=== PATIENT | female | born 1960 | race Caucasian/White ===

== ENCOUNTER 2022-07-06 08:00 | Outpatient (CLI) | payer MEDICARE, SELFPAY ==
--- NOTE | 2022-07-06 | ECG_ITS ---
[facility] [place] Date: 2022-07-06 Pat Name: Genna Jackson Department: Room: Gender: Female Fleet Assistant: : 1960 Requested By: Hansa Avelar Order Number: [id number] Oleksandr MD: Ranjith Gandara M.D. Interpretive Statements NAME OF STUDY: LEXISCAN SESTAMIBI STRESS TEST INDICATION: [HTN, hx of angina, ] Procedure: At the baseline, the blood pressure was 157/87 mmHg with a heart rate of 49 bpm. The electrocardiogram showed sinus bradycardia, normal axis with normal ST and T's. The Lexiscan was infused over a period of 20 seconds. A total of 0.4 mg of Lexiscan was infused. The stress phase was continued for a total of 5 minutes. Heart rate was at the end of stress phase was 79 bpm and a blood pressure of 157/87 mmHg. The EKG at the peak infusion revealed normal sinus rhythm with no significant ST-T wave changes. Sestamibi was injected 20 seconds after the Lexiscan infusion. Blood pressure at the end of recovery phase was 144/76 mmHg with a heart rate of 63 bpm. Conclusion: 1. Normal EKG response to Lexiscan infusion 2. No Lexiscan induced chest pain or cardiac arrhythmia. 3. Normal blood pressure and heart rate response. 4. Sestamibi/sestamibi perfusion scan pending; see separate report. Electronically Signed On 07-23-2022 11:43:45 CDT by Ranjith Gandara M.D. [email or web address]
[2022-07-06 09:10] VITALS: BMI 36.1
--- NOTE | 2022-07-06 09:19 | NMCV_ITS ---
NM rory perf SPECT r/s* [id number] Genna Jackson Age: 62 Gender: F : 1960 Exam Date: 07/06/2022 09:16 Ordering Phys: Hansa Avelar Technologist: ALEXANDRIA Tolentino Exam Location: [facility] Indications: HYPERTENSION STRESS TEST Please see separate stress test report in [facility] for full findings IMAGE PROTOCOL Rest/Stress 1 Lexiscan Day Radiopharmaceutical Dose (mCi) Administration Site Administered by Rest: Tc-99m 11.0 IV Akil Tran, ELECTRONIC ORGAN TECHNICIAN Sestamibi Stress:Tc-99m 32.9 IV Akil Tran, ELECTRONIC ORGAN TECHNICIAN Sestamibi Rest: 06-Jul-2022 60 Discovery 630 Stress: 06-Jul-2022 30 Discovery 630 0.4mg Lexiscan. Images obtained in supine and prone position. SPECT RESULTS Technical Quality: Excellent Raw Data Analysis: Normal Image Corrections: No attenuation or motion correction applied Summed Stress Score: 4 Summed Rest Score: 4 Summed Difference Score: 1 PERFUSION FINDINGS There is a small in size, partially reversible perfusion defect noted in the apical and apical inferior underwood. This is consistent with small sized prior infarct with small area of tasha-infarct ischemia in these territories. FUNCTIONAL RESULTS (calculated via Gated SPECT) Stress Image LV EF (%): 73 Stress EDV (mL):133 TID: 1.04 Stress ESV (mL):36 FUNCTIONAL FINDINGS: There is normal left ventricular systolic function. IMPRESSIONS 1. Small sized area of prior infarct noted in the apical and apical inferior underwood with small area of tasha-infarct ischemia seen 2. LV systolic function is normal Ranjith Gandara MD (Electronically Signed) Final Date: 09 July 2022 12:22 S
[2022-07-06] MEDS: regadenoson 0.4 Mg/5 ml Syringe IVP (10:29)
[2022-07-06 10:49] VITALS: BP 144/76; PULSE 62
[2022-07-06] MEDS: ondansetron 2 mg/ML SDV 2 mL 4 MG IVP (10:49)
== END 2022-07-06 08:01 | disposition home or self-care (01) ==
PROVIDERS: PCP Family Medicine; Visit Provider Nurse Practitioner Family
DX: I10 Essential (primary) hypertension (principal); E78.5 Hyperlipidemia, unspecified; E66.9 Obesity, unspecified; Z86.79 Personal history of other diseases of the circulatory system
CPT/HCPCS: 36415; 78452; 93017; 96374; 96375; A9500; J2405; J2785

== ENCOUNTER → 2022-07-11 08:09 | Outpatient (BNVA) | payer MEDICARE, SELFPAY | PROVIDERS: PCP Family Medicine; Referring Provider Nurse Practitioner Family; Visit Provider Internal Medicine Rheumatology | DX: R21 Rash and other nonspecific skin eruption (principal); Z79.899 Other long term (current) drug therapy; M19.90 Unspecified osteoarthritis, unspecified site; M17.0 Bilateral primary osteoarthritis of knee; Z11.1 Encounter for screening for respiratory tuberculosis | CPT/HCPCS: 99204 ==

== ENCOUNTER 2022-07-12 13:19 | Outpatient (CLI) | payer MEDICARE, SELFPAY ==
--- NOTE | 2022-07-12 13:52 | XR_ITS ---
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 No sign of loosening or fracture. No joint effusion. Normal soft tissues. XR/XR knee RT 3V* [id number] IMPRESSION: 1. Intact right total knee replacement.
--- NOTE | 2022-07-12 13:52 | XR_ITS ---
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 Mild degenerative narrowing of the IP and MP joints. Several periar ticular subcortical cysts are noted. Normal soft tissues. XR/XR hand RT min 3V* [id number] IMPRESSION: 1. Mild degenerative changes. Several periarticular subcortical cysts are noted in the digits. 2. No fracture or other significant finding.
--- NOTE | 2022-07-12 13:52 | XR_ITS ---
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 Minimal degenerative thinning of the medial joint compartment. No joint e ffusion noted. Soft tissue calcification seen along the anterior upper tibia. XR/XR knee LT 3V* [id number] IMPRESSION: 1. Mild degenerative narrowing of the medial joint compartment. 2. No fracture or joint effusion.
--- NOTE | 2022-07-12 13:52 | XR_ITS ---
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 Mild degenerative changes in the IP and MP joints. Several of subco rtical cysts are identified in the phalanges and distal second metacarpal. No soft tissue foreign bod ies are seen. XR/XR hand LT min 3V* [id number] IMPRESSION: 1. Degenerative changes of the IP and MP joints with subcortical cyst formation . 2. No fracture or dislocation.
[2022-07-12 15:01] LABS: 25 Hydroxy Vitamin D 37 ng/mL (30-100)
[2022-07-14 14:45] LABS: Quantiferon Mitogen >10.00 IU/mL; Quantiferon Nil 0.02 IU/mL; Quantiferon TB Gold NEGATIVE (NEGATIVE)
[2022-07-16 13:11] LABS: Cyclic Citrullinated Peptide <16 UNITS
[2022-07-17 08:05] LABS: SS A Ro Sjogrens Antibody <1.0 NEG AI (<1.0 NEG); SS-B/LA IGG <1.0 NEG AI (<1.0 NEG)
== END 2022-07-12 13:20 | disposition home or self-care (01) ==
LOC: LAB 13:21
PROVIDERS: PCP Family Medicine; Visit Provider Internal Medicine Rheumatology
DX: M19.90 Unspecified osteoarthritis, unspecified site (principal); Z79.899 Other long term (current) drug therapy; Z11.59 Encounter for screening for other viral diseases
CPT/HCPCS: 36415; 73130; 73562; 82306; 86200; 86235; 86480

== ENCOUNTER 2023-08-20 14:20 | Outpatient (CLI) | payer OTHER, SELFPAY ==
[2023-08-20 15:07] LABS: Basophils # 0.1 10^3/uL (0.0-0.1); Basophils % 1.1 %; Eosinophils # 0.1 10^3/uL (0.0-0.8); Eosinophils % 1.2 %; Hematocrit 38.6 % (36-47); Lymphocytes # 2.3 10^3/uL (0.8-4.8); Lymphocytes % 40.4 %; Mean Corpuscular HGB Conc 33.4 g/dL (30-55); Mean Corpuscular Hemoglobin 31.6 pg (27-33); Mean Corpuscular Volume 94.6 fl (85-98); Mean Platelet Volume 10.5 fL (7.4-10.4); Monocytes # 0.4 10^3/uL (0.2-0.9); Monocytes % 6.2 %; Neutrophils % 50.9 %; Nucleated Red Blood Cells % 0 %; Platelet Count 284 10^3/cmm (157-399); Red Blood Count 4.08 10^6/uL (3.85-5.65); Red Cell Distribution Width 13.7 % (12.1-15.1); White Blood Count 5.69 10^3/uL (3.29-11.43)
[2023-08-20 15:29] LABS: Alanine Aminotransferase 15 U/L (0-33); Albumin Level 4.2 g/dL (3.5-5.2); Alkaline Phosphatase 121 U/L (35-105); Aspartate Amino Transferase 19 U/L (0-32); Globulin 2.8 g/dL (1.3-4.6); Glomerular Filtration Rate 72.4 mL/min (90-130); Total Bilirubin 0.4 mg/dL (0.15-1.2)
== END 2023-08-20 14:21 | disposition home or self-care (01) ==
LOC: LAB 14:23
PROVIDERS: PCP Family Medicine; Visit Provider Internal Medicine Rheumatology
DX: Z79.899 Other long term (current) drug therapy (principal); M06.041 Rheumatoid arthritis without rheumatoid factor, right hand; M06.042 Rheumatoid arthritis without rheumatoid factor, left hand
CPT/HCPCS: 36415; 80076; 82565; 85025; 86140

== ENCOUNTER → 2023-11-19 07:57 | Outpatient (BNVA) | payer OTHER, SELFPAY | PROVIDERS: PCP Family Medicine; Visit Provider Physician Assistant | DX: M19.011 Primary osteoarthritis, right shoulder (principal); M75.41 Impingement syndrome of right shoulder | CPT/HCPCS: 73030 ==

== ENCOUNTER 2023-11-19 08:50 | Outpatient (CLI) | payer OTHER, SELFPAY ==
[2023-11-19 09:41] LABS: Basophils # 0.1 10^3/uL (0.0-0.1); Basophils % 1.6 %; Eosinophils # 0.2 10^3/uL (0.0-0.8); Hematocrit 38.8 % (36-47); Lymphocytes # 2.1 10^3/uL (0.8-4.8); Lymphocytes % 36.9 %; Mean Corpuscular HGB Conc 33.5 g/dL (30-55); Mean Corpuscular Hemoglobin 31.3 pg (27-33); Mean Corpuscular Volume 93.5 fl (85-98); Mean Platelet Volume 11.3 fL (7.4-10.4); Monocytes # 0.7 10^3/uL (0.2-0.9); Monocytes % 11.5 %; Neutrophils % 46.8 %; Nucleated Red Blood Cells % 0 %; Platelet Count 221 10^3/cmm (157-399); Red Blood Count 4.15 10^6/uL (3.85-5.65); Red Cell Distribution Width 13.2 % (12.1-15.1); White Blood Count 5.75 10^3/uL (3.29-11.43)
[2023-11-19 09:51] LABS: Erythrocyte Sedimentation Rate 7 mm/hr (0-15)
[2023-11-19 10:04] LABS: Alanine Aminotransferase 14 U/L (0-33); Albumin Level 4.1 g/dL (3.5-5.2); Alkaline Phosphatase 123 U/L (35-105); Aspartate Amino Transferase 19 U/L (0-32); Globulin 2.5 g/dL (1.3-4.6); Glomerular Filtration Rate 84.5 mL/min (90-130); Total Bilirubin 0.2 mg/dL (0.15-1.2); Total Protein 6.6 g/dL (6.6-8.7)
== END 2023-11-19 08:51 | disposition home or self-care (01) ==
LOC: LAB 08:54
PROVIDERS: PCP Family Medicine; Visit Provider Internal Medicine Rheumatology
DX: Z79.899 Other long term (current) drug therapy (principal); M06.041 Rheumatoid arthritis without rheumatoid factor, right hand; M06.042 Rheumatoid arthritis without rheumatoid factor, left hand
CPT/HCPCS: 36415; 80076; 82565; 85025; 85651; 86140

== ENCOUNTER 2024-02-26 13:47 | Outpatient (CLI) | payer OTHER, SELFPAY ==
[2024-02-26 14:05] LABS: Basophils # 0.1 10^3/uL (0.0-0.1); Basophils % 0.7 %; Eosinophils # 0.1 10^3/uL (0.0-0.8); Eosinophils % 1.8 %; Lymphocytes # 2.1 10^3/uL (0.8-4.8); Lymphocytes % 31.6 %; Mean Corpuscular HGB Conc 33.9 g/dL (30-55); Mean Corpuscular Hemoglobin 30.6 pg (27-33); Mean Corpuscular Volume 90.2 fl (85-98); Mean Platelet Volume 10.6 fL (7.4-10.4); Monocytes # 0.7 10^3/uL (0.2-0.9); Monocytes % 9.7 %; Neutrophils # 3.73 10^3/uL (1.8-7.7); Neutrophils % 55.6 %; Nucleated Red Blood Cells % 0 %; Platelet Count 179 10^3/cmm (157-399); Red Blood Count 3.99 10^6/uL (3.85-5.65); Red Cell Distribution Width 13.2 % (12.1-15.1); White Blood Count 6.71 10^3/uL (3.29-11.43)
[2024-02-26 14:17] LABS: Erythrocyte Sedimentation Rate 11 mm/hr (0-15)
[2024-02-26 14:25] LABS: Alanine Aminotransferase 18 U/L (0-33); Alkaline Phosphatase 103 U/L (35-105); Aspartate Amino Transferase 19 U/L (0-32); C Reactive Protein 18.7 mg/L (0.0-4.9); Globulin 2.7 g/dL (1.3-4.6); Glomerular Filtration Rate 72.4 mL/min (90-130); Total Bilirubin 0.4 mg/dL (0.15-1.2); Total Protein 6.7 g/dL (6.6-8.7)
== END 2024-02-26 13:48 | disposition home or self-care (01) ==
PROVIDERS: PCP Family Medicine; Visit Provider Internal Medicine Rheumatology
DX: M06.041 Rheumatoid arthritis without rheumatoid factor, right hand (principal); M06.042 Rheumatoid arthritis without rheumatoid factor, left hand; Z79.899 Other long term (current) drug therapy
CPT/HCPCS: 36415; 80076; 82565; 85025; 85651; 86140

== ENCOUNTER → 2024-04-07 08:31 | Outpatient (BNVA) | payer OTHER, SELFPAY | PROVIDERS: PCP Family Medicine; Visit Provider Family Medicine | DX: I10 Essential (primary) hypertension (principal) | CPT/HCPCS: 80048 ==

== ENCOUNTER → 2024-04-09 11:00 | Outpatient (BNVA) | payer OTHER, SELFPAY | PROVIDERS: PCP Family Medicine; Visit Provider Podiatrist Foot & Ankle Surgery | DX: M79.672 Pain in left foot (principal); M77.42 Metatarsalgia, left foot; M25.872 Other specified joint disorders, left ankle and foot; M21.612 Bunion of left foot | CPT/HCPCS: 73630 ==

== ENCOUNTER 2024-04-09 11:36 | Outpatient (CLI) | payer OTHER, SELFPAY | END 2024-04-09 11:37 | disposition home or self-care (01) | LOC: SPT 11:37 | PROVIDERS: PCP Family Medicine; Visit Provider Podiatrist Foot & Ankle Surgery | DX: Z46.89 Encounter for fitting and adjustment of other specified devices (principal); M79.672 Pain in left foot; M77.42 Metatarsalgia, left foot; M21.612 Bunion of left foot; M25.872 Other specified joint disorders, left ankle and foot | CPT/HCPCS: L4361 ==

== ENCOUNTER 2024-04-15 10:44 | Outpatient (CLI) | payer OTHER, SELFPAY ==
--- NOTE | 2024-04-15 11:00 | MR_ITS ---
WS: [id number] MRI LEFT FOOT WITHOUT CONTRAST. COMPARISON: 04/09/2024 Multiplanar, multisequence imaging is performed without contrast. History: Pain along the plantar surface of the foot to the big toe. There is very mild narrowing of the first metatarsophalangeal joint. No fractures or marrow edema. Th ere is a very small amount of edema in the medial first metatarsal head. There is additional edema an d a small cyst in the proximal third, fourth and fifth metatarsals. Edema with subchondral cystic alyssia nges in the lateral cuneiform. Degenerative joint space narrowing in the midfoot. No stress fracture. No significant bursal fluid identified involving the metatarsal phalangeal articulations. The flexor hallucis longus tendon and the sesamoid bones are appropriate. Lateral and medial collateral bands at the level of the metatarsal heads are normal. Normal appearance of the flexor digitorum longus tendo ns. No mass. MR/MR foot LT wo con* [id number] IMPRESSION: 1. 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 2. Normal appearance of the sesamoid bones and the flexor hallucis longus tend on. 3. Small amount of marrow edema in the proximal third, fourth and fifth metata rsals. Greatest amount in the third metatarsal. 4. Additional marrow edema in the lateral cuneiform. Edema along the articular surface of the tarsal metatarsals is most consistent with arthritis.
== END 2024-04-15 10:45 | disposition home or self-care (01) ==
LOC: RAD 10:45
PROVIDERS: PCP Family Medicine; Visit Provider Podiatrist Foot & Ankle Surgery
DX: M19.072 Primary osteoarthritis, left ankle and foot (principal); M77.42 Metatarsalgia, left foot; M25.872 Other specified joint disorders, left ankle and foot; R93.6 Abnormal findings on diagnostic imaging of limbs
CPT/HCPCS: 73718

== ENCOUNTER → 2024-09-23 10:09 | Outpatient (BNVA) | payer OTHER, SELFPAY | PROVIDERS: PCP Family Medicine; Visit Provider Family Medicine | DX: I10 Essential (primary) hypertension (principal); E83.42 Hypomagnesemia; Z79.899 Other long term (current) drug therapy; Z68.35 Body mass index [BMI] 35.0-35.9, adult; M06.041 Rheumatoid arthritis without rheumatoid factor, right hand; M06.042 Rheumatoid arthritis without rheumatoid factor, left hand; M19.90 Unspecified osteoarthritis, unspecified site; G89.29 Other chronic pain; G43.909 Migraine, unspecified, not intractable, without status migrainosus | CPT/HCPCS: 80053; 83735 ==

== ENCOUNTER → 2024-10-29 10:37 | Outpatient (BNVA) | payer OTHER, SELFPAY | PROVIDERS: PCP Family Medicine; Referring Provider Family Medicine; Visit Provider Internal Medicine Cardiovascular Disease | DX: R07.9 Chest pain, unspecified (principal); R00.1 Bradycardia, unspecified; I51.7 Cardiomegaly; R94.31 Abnormal electrocardiogram [ECG] [EKG] | CPT/HCPCS: 93005 ==

== ENCOUNTER 2024-12-10 11:18 | Outpatient (CLI) | payer OTHER, SELFPAY ==
--- NOTE | 2024-12-10 12:00 | USCV_ITS ---
Genna Jackson Age: 64 Gender: F : 1960 Exam Date: 12/10/2024 11:50 Ordering Phys: Steve Whitman MD ([email or web address]) Technologist: ESHTER [place]am [place] [facility] [place] Indication: SoB BP: 132 / 84 HR: 48 Rhythm: Sinus Technical Quality: Adequate MEASUREMENTS (Male / Female) Normal Values 2D ECHO LV Diastolic Diameter PLAX 5.1 cm 4.2 - 5.9 / 3.9 - 5.3 cm IVS Systolic Thickness 1.4 cm LVPW Systolic Thickness 1.8 cm LVOT Diameter 2.0 cm LV Ejection Fraction 2D Teich 61.6 % LV Ejection Fraction MOD 4C 57.6 % LV Ejection Fraction MOD 2C 56.8 % LV Ejection Fraction 2C AL 57.4 % LA Diameter 3.3 cm RA Systolic Volume 4C AL 64.8 ml RA Systolic Volume 4C MOD 53.2 ml LA Sys Volume AL 63.2 cm cubed LA Sys Volume Index AL 28.7 cm cubed/m squared Aorta at Sinotubular Diameter 2.7 cm M-MODE LA Ao Ratio MM 1.4 AV Cusp Separation MM 1.3 cm DOPPLER AV Peak Velocity 240.0 cm/s LVOT Peak Velocity 135.0 cm/s AV Area Cont Eq vti 1.9 cm squared AV Area Cont Eq pk 1.8 cm squared MV Peak Velocity 109.0 cm/s MV Area PHT 3.5 cm squared Mitral E to A Ratio 1.3 TV Peak Velocity 243.0 cm/s TR Peak Velocity 248.0 cm/s TR Peak Gradient 24.6 mmHg TV Peak E Velocity 98.0 cm/s PV Peak Velocity 131.0 cm/s FINDINGS Left Ventricle Normal left ventricular size, systolic function and wall thickness, with no regional wall motion abnormalities. Left ventricular ejection fraction is estimated at 57%. Grade II/IV diastolic dysfunction, moderately elevated filling pressures. Right Ventricle Normal right ventricular size and systolic function. Normal right ventricular systolic pressure. Right Atrium Normal right atrial size. Left Atrium Normal left atrial size. Mitral Valve No mitral valve stenosis. Trace mitral valve regurgitation. Aortic Valve No aortic valve stenosis. Mild aortic valve regurgitation. Aortic valve not well visualized. Tricuspid Valve Mild tricuspid valve regurgitation. Pulmonic Valve No pulmonary valve stenosis. No pulmonary valve regurgitation. Pericardium No pericardial effusion. Aorta Normal size aortic root and proximal ascending aorta. IVC Inferior vena cava not visualized. CONCLUSIONS 1. Normal biventricular cavity size and systolic function. 2. Mild aortic valve regurgitation. 3. Grade II/IV left ventricular diastolic dysfunction with elevated left ventricular filling pressure Steve Whitman MD, FACC (Electronically Signed) Final Date: 13 December 2024 16:33 S
== END 2024-12-10 11:19 | disposition home or self-care (01) ==
PROVIDERS: PCP Family Medicine; Visit Provider Internal Medicine Cardiovascular Disease
DX: R06.02 Shortness of breath (principal)
CPT/HCPCS: 93306

== ENCOUNTER 2024-12-18 15:19 | Outpatient (CLI) | payer OTHER, SELFPAY ==
--- NOTE | 2024-12-18 15:42 | XR_ITS ---
WS: [email or web address] XR cervical spine min 6V [id number] REASON FOR EXAM: cervical spondylosis FINDINGS: Slight reversal of the normal lordosis of the cervical spine. Normal odontoid. No significant compression deformity or focal lesion of the cervical vertebrae. Mild narrowing of the C4-C5 disc space. 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 Moderate narrowing of the C5-C6 disc space with mild endplate sclerosis and mild posterior and anterior osteophytosis. C5 and C6 may be autofused. Mild narrowing of the C6-C7 disc space with moderate posterior and large anterior osteophytes of the C6 vertebral body. Moderate degenerative arthropathy in the facet joints C3-T1. No significant listhesis in the neutral position. With flexion there is 2 mm of anterolisthesis of C6 on C7 and C3 on C2. Normal vertebral body alignment with extension. XR/XR cervical spine min 6V [id number] IMPRESSION: Degenerative spondylosis as described above.
--- NOTE | 2024-12-18 15:43 | XR_ITS ---
WS: [email or web address] Lumbar spine, 7 views including AP, lateral views in neutral, flexion and extension position, both obliques and L5-S1 spot, 12/18/2024 Clinical Data: lumbosacral spondylosis Comparison: Lumbar spine, 12/05/2018 Findings: No compression fractures are seen. There is 0.4 cm anterior subluxation of L5 on S1. Degenerative disc narrowing is present at all levels from L2-L3 through L5- S1. The oblique images show no spondylolysis. The transverse processes and SI joints are normal. There is facet joint arthritis from L4-L5 through L5-S1. Minimal osteoarthritic spurring is present at all lumbar levels. On flexion and extension no instability occurs. There are cholecystectomy clips in the right upper quadrant. XR/XR lumbar spine 6V w f/e [id number] Impression: 1. 0.4 cm anterior subluxation of L5 on S1. 2. Multilevel degenerative disc narrowing facet joint arthritis and osteoarthri tis. 3. No instability on flexion or extension. 4. No spondylolysis.
[2024-12-18 16:31] LABS: Hematocrit 45.8 % (36-47); Hemoglobin 15.10 g/dL (11.27-16.99); Mean Corpuscular HGB Conc 33.0 g/dL (30-55); Mean Corpuscular Hemoglobin 30.6 pg (27-33); Mean Corpuscular Volume 92.7 fl (85-98); Nucleated Red Blood Cells % 0 %; Platelet Count 380 10^3/cmm (157-399); Red Blood Count 4.94 10^6/uL (3.85-5.65); White Blood Count 16.72 10^3/uL (3.29-11.43)
[2024-12-18 17:12] LABS: Alanine Aminotransferase 21 U/L (0-33); Albumin Level 4.5 g/dL (3.5-5.2); Alkaline Phosphatase 121 U/L (35-105); Globulin 3.3 g/dL (1.3-4.6); NT Pro B Type Natriuretic Pept 68 pg/mL (0-125); Total Protein 7.8 g/dL (6.6-8.7)
[2024-12-18 17:34] LABS: Aspartate Amino Transferase 19 U/L (0-32)
== END 2024-12-18 15:20 | disposition home or self-care (01) ==
PROVIDERS: Family Provider Internal Medicine Cardiovascular Disease; PCP Family Medicine; Referring Provider Internal Medicine Rheumatology; Visit Provider Student in an Organized Health Care Education/Training Program
DX: Z79.899 Other long term (current) drug therapy (principal); M06.041 Rheumatoid arthritis without rheumatoid factor, right hand; M06.042 Rheumatoid arthritis without rheumatoid factor, left hand; R06.02 Shortness of breath; M47.816 Spondylosis without myelopathy or radiculopathy, lumbar region; M47.812 Spondylosis without myelopathy or radiculopathy, cervical region
CPT/HCPCS: 36415; 72052; 72114; 80076; 82565; 83880; 85025; 85651; 86140

== ENCOUNTER → 2025-01-26 11:27 | Outpatient (BNVA) | payer OTHER, SELFPAY | PROVIDERS: PCP Family Medicine; Visit Provider Internal Medicine Cardiovascular Disease | DX: I10 Essential (primary) hypertension (principal) | CPT/HCPCS: 36415; 80048 ==